=== PATIENT | female | born 1970 | race Caucasian/White ===

== ENCOUNTER 2023-01-04 09:20 | Day surgery (SDC) | payer OTHER ==
[~2023-01-04] VITALS: Ht 162.6 cm; Wt 59.2 kg
[~2023-01-04 09:20] MED LIST: ALBU90OI INH; AMOX500 PO; AZIT500 PO; HYDACE5 PO; HYDPAM25 PO; IBUP800 PO; LEVFLO500 PO; MULVITA PO; NAPR550 PO; POLY17UD PO; PRED20 PO; RXHYDACE PO; RXNAPNA550 PO
[2023-01-04] MEDS ORDERED: Adderall Xr 1515 MG (09:40)
[2023-01-04] MEDS ORDERED: BUPRENORPHIN-N1 EACH (09:41)
[2023-01-04 11:21] VITALS: BP 117/92
== END 2023-01-04 11:21 | disposition home or self-care (01) ==
LOC: ORSCSDS 09:20
PROVIDERS: Internal Medicine Gastroenterology
PROC: 0DBK8ZX Excision of Ascending Colon, Via Natural or Artificial Opening Endoscopic, Diagnostic (ICD-10-PCS; principal; 2023-01-04 10:30)
PROC: 0DBP8ZX Excision of Rectum, Via Natural or Artificial Opening Endoscopic, Diagnostic (ICD-10-PCS; principal; 2023-01-04 10:30)
DX: Z12.11 Encounter for screening for malignant neoplasm of colon (principal); K62.1 Rectal polyp; K63.5 Polyp of colon; Z80.0 Family history of malignant neoplasm of digestive organs; F90.9 Attention-deficit hyperactivity disorder, unspecified type; F17.210 Nicotine dependence, cigarettes, uncomplicated; Z79.899 Other long term (current) drug therapy
CPT/HCPCS: 88305; J2405; J2704; J7120

== ENCOUNTER → 2024-01-12 | Outpatient (CLI) | payer OTHER ==
[~2024-01-12] MED LIST changes: +Adderall Xr 1515 MG; +BUPRENORPHIN-N1 EACH
[2024-01-21 03:38] LABS: HPV HIGH RISK BY TMA Not Detected; HPV SOURCE Cervical
== END ==
LOC: LAB SHORT 16:53 → LAB 16:53
PROVIDERS: Registered Nurse
DX: Z01.419 Encounter for gynecological examination (general) (routine) without abnormal findings (principal)
CPT/HCPCS: 87624; G0123